=== PATIENT | female | born 1995 | race Caucasian/White ===

== ENCOUNTER 2017-03-07 21:14 | Emergency (ER) | payer BC ==
[~2017-03-07] VITALS: Ht 160 cm; Wt 89.6 kg
[~2017-03-07 21:14] MED LIST: ALBUTEROL0.5 % IN; CIPRO XR500 MG PO; CIPROFLOXACN500 MG PO; EQL IBUPROFEN200 MG PO; FLONASE NASAL50 MCG; IBUPROFEN400 MG PO; LO LOESTRIN PO; LORTAB 7.5 OR; MACROBID100 MG OR; MEDDOSEPAK OR; NO CURRENT MEDS; NO HOME MEDS; PRENATA3 PO; PROMETH/COD1 ML OR; PYRIDIUM200 MG PO; ROXICET1 TA1 OR; SPRINTEC 2828 DAY PO; TRAMADOL HCL50 MG PO; TYLENOL325 MG PO; ULTRAM50 M1 PO; VENTOLIN HFA IN; ZITHROMAX250 MG OR; [UNRECOGNIZED DRUG - REMARK]
[2017-03-07 22:08] LABS: HEMATOCRIT 38.6 % (37.0-47.0); HEMOGLOBIN 12.4 g/dl (12.0-16.0); IMMATURE GRANULOCYTES 0.1 % (0.0-1.0); MEAN CELL VOLUME 87.1 fL CALC (80.0-100.0); MEAN CORPUSCULAR HGB CONC 32.1 g/L CALC (32.0-36.0); NEUT# 3.69 thou/uL (2.00-7.15); RED BLOOD COUNT 4.43 mill/uL (4.20-5.60); RED CELL DISTRI WIDTH 12.3 % (11.5-15.5)
[2017-03-07 22:09] LABS: URINE BILIRUBIN - DIPSTICK NEGATIVE (NEGATIVE); URINE BLOOD DIPSTICK NEGATIVE (NEGATIVE); URINE CLARITY CLEAR; URINE COLOR YELLOW; URINE GLUCOSE - DIPSTICK NEGATIVE (NEGATIVE); URINE KETONE NEGATIVE (NEGATIVE); URINE LEUK ESTERASE NEGATIVE (NEGATIVE); URINE NITRITE - DIPSTICK NEGATIVE (Negative); URINE PH 6.5 (4.5-8.0); URINE PROTEIN - DIPSTICK NEGATIVE (NEG-TRACE); URINE UROBILINOGEN - DIPSTICK 0.2 E.U./dL (0.2)
[2017-03-07 22:21] LABS: ALBUMIN 4.6 g/dL (3.2-5.0); ALKALINE PHOSPHATASE 59 u/l (38-126); AMYLASE 52 u/l (30-110); ANION GAP 16 (6-22 (CALC)); BILIRUBIN, TOTAL 0.3 mg/dL (0.0-1.4); BUN 17 mg/dL (7-17); BUN/CREATININE RATIO 17 (12-20 (CALC)); CALCIUM 9.7 mg/dL (8.4-10.2); CARBON DIOXIDE 27 mmol/l (22-30); CHLORIDE 105 mmol/l (95-108); GFR > 60 ML/MIN (>=60 (CALC)); GFR FOR AFR.AMER. > 60 ML/MIN (>=60 (CALC)); GLUCOSE 80 mg/dL (65-105); LIPASE 143 u/l (23-300); SGOT/AST 37 u/l (14-36); SGPT/ALT 55 u/l (9-52); SODIUM 143 mmol/l (137-146); TOTAL PROTEIN 7.3 g/dL (6.3-8.2)
[2017-03-07 22:51] VITALS: BP 116/72
== END 2017-03-07 22:49 | disposition home or self-care (01) | DRG 392 ==
LOC: ED 21:14
PROVIDERS: Emergency Medicine
DX: R10.11 Right upper quadrant pain (principal)

== ENCOUNTER 2019-03-08 09:58 | Emergency (ER) | payer BC ==
[~2019-03-08] VITALS: Ht 160 cm; Wt 90.0 kg
[2019-03-08 10:42] LABS: HEMOGLOBIN 13.9 g/dl (12.0-16.0); IMMATURE GRANULOCYTES 0.2 % (0.0-5.0); MEAN CELL VOLUME 89.7 fL CALC (80.0-100.0); MEAN CORPUSCULAR HGB 30.4 pG CALC (26.0-32.0); MEAN CORPUSCULAR HGB CONC 33.9 g/L CALC (32.0-36.0); NEUT# 2.12 thou/uL (2.00-7.15); RED BLOOD COUNT 4.57 mill/uL (4.20-5.60); RED CELL DISTRI WIDTH 11.8 % (11.5-15.5)
[2019-03-08 10:58] LABS: ANION GAP 12 (6-22 (CALC)); BUN 8 mg/dL (7-17); BUN/CREATININE RATIO 11 (12-20 (CALC)); CARBON DIOXIDE 24 mmol/l (22-30); CHLORIDE 108 mmol/l (95-108); CREATININE 0.7 mg/dL (0.5-1.0); GFR > 60 ML/MIN (>=60 (CALC)); GFR FOR AFR.AMER. > 60 ML/MIN (>=60 (CALC)); SODIUM 141 mmol/l (137-146)
[2019-03-08 14:46] VITALS: BP 150/90
== END 2019-03-08 14:59 | disposition home or self-care (01) | DRG 313 ==
LOC: ED 09:58
PROVIDERS: Family Medicine
DX: R07.9 Chest pain, unspecified (principal); I10 Essential (primary) hypertension; H53.8 Other visual disturbances; R94.31 Abnormal electrocardiogram [ECG] [EKG]
CPT/HCPCS: A9579

== ENCOUNTER 2019-05-29 20:42 | Emergency (ER) | payer BC ==
[~2019-05-29] VITALS: Ht 160 cm; Wt 89.6 kg
[2019-05-29] MEDS ORDERED: VERAPAMIL120 M1 PO (20:48)
[2019-05-29 21:26] LABS: HEMATOCRIT 41.1 % (37.0-47.0); HEMOGLOBIN 14.1 g/dl (12.0-16.0); IMMATURE GRANULOCYTES 0.2 % (0.0-5.0); MEAN CELL VOLUME 88.8 fL CALC (80.0-100.0); MEAN CORPUSCULAR HGB 30.5 pG CALC (26.0-32.0); MEAN CORPUSCULAR HGB CONC 34.3 g/L CALC (32.0-36.0); NEUT# 4.43 thou/uL (2.00-7.15); RED BLOOD COUNT 4.63 mill/uL (4.20-5.60); RED CELL DISTRI WIDTH 11.7 % (11.5-15.5)
[2019-05-29 21:31] LABS: URINE BILIRUBIN - DIPSTICK NEGATIVE (NEGATIVE); URINE BLOOD DIPSTICK LARGE (NEGATIVE); URINE COLOR YELLOW; URINE GLUCOSE - DIPSTICK NEGATIVE (NEGATIVE); URINE KETONE NEGATIVE (NEGATIVE); URINE LEUK ESTERASE NEGATIVE (NEGATIVE); URINE NITRITE - DIPSTICK NEGATIVE (Negative); URINE PROTEIN - DIPSTICK NEGATIVE (NEG-TRACE); URINE SPECIFIC GRAVITY 1.025; URINE UROBILINOGEN - DIPSTICK 0.2 E.U./dL (0.2)
[2019-05-29 21:39] LABS: URINE SQUAMOUS EPITHELIAL CELL MODERATE EPI/hpf (0-FEW)
[2019-05-29 21:42] LABS: ALBUMIN 4.2 g/dL (3.2-5.0); ALKALINE PHOSPHATASE 50 u/l (38-126); AMYLASE 46 u/l (30-110); ANION GAP 12 (6-22 (CALC)); BILIRUBIN, TOTAL 0.4 mg/dL (0.0-1.4); BUN 9 mg/dL (7-17); BUN/CREATININE RATIO 12 (12-20 (CALC)); CHLORIDE 104 mmol/l (95-108); CREATININE 0.7 mg/dL (0.5-1.0); GFR > 60 ML/MIN (>=60 (CALC)); GFR FOR AFR.AMER. > 60 ML/MIN (>=60 (CALC)); LIPASE 96 u/l (23-300); POTASSIUM 3.8 mmol/l (3.5-5.1); SGOT/AST 29 u/l (14-36); SODIUM 141 mmol/l (137-146)
[2019-05-29 21:46] LABS: CARBON DIOXIDE 29 mmol/l (22-30)
[2019-05-30] VITALS: BP 115/76
[2019-05-30] MEDS ORDERED: ZOFRAN4 MG/TAB PO (00:13)
[2019-05-30] MEDS ORDERED: PROTONIX40 M2 PO (00:13)
== END 2019-05-30 00:26 | disposition home or self-care (01) | DRG 392 ==
LOC: ED 20:42
DX: R11.2 Nausea with vomiting, unspecified (principal); R10.31 Right lower quadrant pain; R19.7 Diarrhea, unspecified; K59.00 Constipation, unspecified; I10 Essential (primary) hypertension

== ENCOUNTER 2020-12-07 14:14 | Emergency (ER) | payer OTHER, BC ==
[~2020-12-07] VITALS: Ht 160 cm; Wt 92.7 kg
[~2020-12-07 14:14] MED LIST changes: +PROTONIX40 M2 PO; +VERAPAMIL120 M1 PO; +ZOFRAN4 MG/TAB PO
[2020-12-07 15:39] LABS: URINE BILIRUBIN - DIPSTICK NEGATIVE (NEGATIVE); URINE BLOOD DIPSTICK NEGATIVE (NEGATIVE); URINE CLARITY HAZY; URINE COLOR YELLOW; URINE GLUCOSE - DIPSTICK NEGATIVE (NEGATIVE); URINE KETONE NEGATIVE (NEGATIVE); URINE LEUK ESTERASE SMALL (Negative); URINE NITRITE - DIPSTICK NEGATIVE (Negative); URINE PH 6.5 (4.5-8.0); URINE PROTEIN - DIPSTICK NEGATIVE (NEG-TRACE); URINE SPECIFIC GRAVITY 1.015; URINE UROBILINOGEN - DIPSTICK 0.2 E.U./dL (0.2)
[2020-12-07 15:47] LABS: URINE SQUAMOUS EPITHELIAL CELL FEW EPI/hpf (0-FEW); URINE WBC 0-2 WBC/hpf (0-5)
[2020-12-07 17:25] VITALS: BP 126/83
== END 2020-12-07 17:25 | disposition home or self-care (01) | DRG 605 ==
LOC: ED 14:14
DX: S20.219A Contusion of unspecified front wall of thorax, initial encounter (principal); S63.502A Unspecified sprain of left wrist, initial encounter; S40.022A Contusion of left upper arm, initial encounter; S60.222A Contusion of left hand, initial encounter; I10 Essential (primary) hypertension; V43.52XA Car driver injured in collision with other type car in traffic accident, initial encounter; W22.11XA Striking against or struck by driver side automobile airbag, initial encounter